=== PATIENT | male | born 1975 | race Caucasian/White ===

== ENCOUNTER 2019-08-02 00:28 | Emergency (ER) | payer MEDICAID, SELFPAY ==
[2019-08-02 00:31] VITALS: BP 131/84; PULSE 91; RESP 18; TEMP 36.6; O2SAT 97; BMI 22.1
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
[2019-08-02] MEDS: morphine 10 MG/ML Syringe 8 MG IM (01:04)
[2019-08-02] MEDS: Ondansetron 4 MG/2 ML Vial IM (01:04)
--- NOTE | 2019-08-02 01:23 | ED.DEP ---
ED Disposition - Plan for ED Patient: Instructions: ED Sprain Hip Prescriptions: cycloBENZAPRine HCl [Flexeril] 10 mg PO TID PRN #20 tablet PRN Reason: Muscle Spasm Naproxen [Naprosyn] 500 mg PO BID PRN #20 tablet Referrals: Paige Webber NP-C [Primary Care Provider] -
--- NOTE | 2019-08-02 05:04 | ED.RN ---
See [facility] downtime forms.
== END 2019-08-02 02:45 | disposition home or self-care (01) ==
LOC: ED 01:29
PROVIDERS: Emergency Provider Emergency Medicine; PCP Nurse Practitioner Family
DX: S73.102A Unspecified sprain of left hip, initial encounter (principal); X50.1XXA Overexertion from prolonged static or awkward postures, initial encounter
CPT/HCPCS: 73502; 96372; 99284; J2405

== ENCOUNTER 2021-04-14 11:43 | Outpatient (CLI) | payer MEDICAID, SELFPAY ==
--- NOTE | 2021-04-14 17:50 | STRESSREP_ITS ---
Stress Test Report Exercise stress test. 45-year-old man with a history of dyspnea. Stress protocol: Resting EKG demonstrates normal sinus rhythm with a rate of 88 bpm normal intervals are noted resting blood pressure is 122/80 mmHg. The patient exercised according to regular Kd protocol for total duration of 10 minutes and 15 seconds completing 1 minute and 15 seconds into stage IV of the Kd protocol. The maximum heart rate attained 166 bpm which was 94% of max impact at heart rate the maximum workload was 13.4 metabolic equivalents. At rest the re were no ST changes noted to suggest ischemia and at peak exercise upsloping ST changes were noted with did not meet the criteria for ischemia. No clinical angina was noted no arrhythmias were noted. The rate-pressure product was 25,900. The peak blood pressure was 172/80 mmHg which was a good blood pressure response to exercise. The patient experienced mild shortness of breath during exertion. Conclusion: Exercise stress test with no EKG criteria for ischemia at a high workload. Excellent functional capacity.
== END 2021-04-14 23:59 | disposition home or self-care (01) ==
LOC: CVS 11:44
PROVIDERS: PCP Nurse Practitioner Family; Visit Provider Nurse Practitioner Family
DX: R06.02 Shortness of breath (principal); R07.89 Other chest pain
CPT/HCPCS: 93017